=== PATIENT | male | born 1980 | race Caucasian/White ===

== ENCOUNTER → 2016-10-18 08:26 | Emergency (ER) | payer SELFPAY ==
--- NOTE | 2016-10-18 10:19 | RAD ---
INDICATION: Right ankle injury. TECHNIQUE: 3 views of the right ankle were obtained. FINDINGS: There is mild diffuse soft tissue swelling. There is a prominent osteochondral lesion present along the medial superior articular surface of the talus measuring 1.1 x 0.6 cm in size. No other fractures are seen. There is mild to moderate osteoarthritic change in the tibiotalar joint. IMPRESSION: 1. OSTEOCHONDRAL LESION ALONG THE SUPERIOR MEDIAL ARTICULAR SURFACE OF THE TALUS LIKELY CHRONIC RECOMMEND AN MRI OF THE ANKLE FOR FURTHER EVALUATION. 2. MILD TO MODERATE OSTEOARTHRITIC CHANGE.
--- NOTE | 2016-10-18 10:22 | RAD ---
INDICATION: Right foot injury. TECHNIQUE: 3 views of the right foot were obtained. FINDINGS: The bones are normal alignment. Again note is made of an osteochondral lesion along the superior medial articular surface of the talus. No acute fracture is seen. Joint spaces appear maintained. IMPRESSION: OSTEOCHONDRAL LESION TALUS, NO ADDITIONAL FRACTURE RECOMMEND AN MRI OF THE ANKLE.
--- NOTE | 2016-10-18 10:45 | ED ---
Lower Extremity - HPI Summary HPI Summary: 36M presents with right ankle pain since Sunday. He says that he does not known how he injured his ankle. He states that he has been able to ambulate but is very painful. He states the area has swollen up and he has been taking ibuprofen for his pain. He states that he has not had any injury to this ankle before. He works as a building construction estimator. He denies any numbness or tingling. - History of Current Complaint Chief Complaint: EDGeneral Stated Complaint: RT ANKLE PAIN Time Seen by Provider: 10/18/16 10:15 Pain Intensity: 7 - Allergies/Home Medications Allergies/Adverse Reactions: Allergies Allergy/AdvReac Type Severity Reaction Status Date / Time No Known Allergies Allergy Verified 12/01/15 08:54 PMH/Surg Hx/FS Hx/Imm Hx Endocrine/Hematology History: Denies: Hx Diabetes, Hx Thyroid Disease Cardiovascular History: Denies: Hx Hypertension Respiratory History: Denies: Hx Asthma, Hx Chronic Obstructive Pulmonary Disease (COPD) GI History: Denies: Hx Ulcer - Surgical History Surgery Procedure, Year, and Place: fx lt wrist Infectious Disease History: No Infectious Disease History: Denies: Hx Hepatitis, Hx Human Immunodeficiency Virus (HIV), Traveled Outside the [place] in Last 30 Days - Family History Known Family History: Positive: Unknown - Social History Alcohol Use: Rare Hx Substance Use: No Substance Use Type: Reports: None Hx Tobacco Use: Yes Smoking Status (MU): Heavy Every Day Tobacco Smoker Type: Cigarettes Amount Used/How Often: 1ppd Length of Time of Smoking/Using Tobacco: 18yrs Have You Smoked in the Last Year: Yes Review of Systems Negative: Fever Negative: Chest Pain Negative: Shortness Of Breath Positive: Myalgia - right ankle pain All Other Systems Reviewed And Are Negative: Yes Physical Exam Triage Information Reviewed: Yes Vital Signs On Initial Exam: Initial Vitals Temp Pulse Resp BP Pulse Ox 98.6 F 77 16 141/94 99 10/18/16 08:40 10/18/16 08:40 10/18/16 08:40 10/18/16 08:40 10/18/16 08:40 Vital Signs Reviewed: Yes Appearance: Positive: Well-Appearing Skin: Positive: Warm, Dry Head/Face: Positive: Normal Head/Face Inspection Eyes: Positive: Normal, Conjunctiva Clear ENT: Positive: Normal ENT inspection, Pharynx normal, TMs normal Respiratory/Lung Sounds: Positive: Clear to Auscultation, Breath Sounds Present Cardiovascular: Positive: Normal, RRR Musculoskeletal: Positive: Limited @ - ankle due to pain, Other - good pulses, capillary refill < 2 secs, tenderness over medial malleolus, Diagnostics - Vital Signs Vital Signs Temp Pulse Resp BP Pulse Ox 10/18/16 08:40 98.6 F 77 16 141/94 97 - Laboratory Lab Statement: Any lab studies that have been ordered have been reviewed, and results considered in the medical decision making process. - Radiology ankle Xray Interpretation: Positive (See Comments) - IMPRESSION: 1. OSTEOCHONDRAL LESION ALONG THE SUPERIOR MEDIAL ARTICULAR SURFACE OF THE TALUS LIKELY CHRONIC RECOMMEND AN MRI OF THE ANKLE FOR FURTHER EVALUATION. 2. MILD TO MODERATE OSTEOARTHRITIC CHANGE. Radiology Interpretation Completed By: Radiologist Lower Extremity Course/Dx - Course Course Of Treatment: 36M presents with right ankle pain since sunday. He has been able to ambulate on it. He is tender over medial mallelous.xray shows OSTEOCHONDRAL LESION TALUS, NO ADDITIONAL FRACTURE RECOMMEND AN MRI. told to follow up with MRI through ortho. patient understands and agrees with plan - Diagnoses Differential Diagnosis/HQI/PQRI: Positive: Fracture (Closed), Sprain, Strain Provider Diagnoses: osteochondral lesion of talus, Right ankle pain Discharge - Discharge Plan Condition: Good Disposition: HOME Prescriptions: Methylprednisolone [Medrol Dosepak 4 MG*] 4 mg PO .SEE LAIN INSTRUCTION #1 packet Patient Education Materials: Ankle Sprain (ED) Forms: *Work Release Referrals: Melchor Mehta PA [Primary Care Provider] - Alberta Lara MD [Medical Doctor] - Additional Instructions: Follow up with ortho about lesion as will need outpatient MRI Stay off ankle as possible as possible Ice, elevate, keep in JEREMIAH Ibuprofen every 6 hours for pain Take steroid packet as prescribed Return to ED if develop any numbness or tingling or any new or worsening symptoms
[2016-10-18 11:10] VITALS: BP 132/89
== END | disposition home or self-care (01) ==
LOC: ED 08:26
DX: M89.571 Osteolysis, right ankle and foot (principal); M25.571 Pain in right ankle and joints of right foot; F17.210 Nicotine dependence, cigarettes, uncomplicated
CPT/HCPCS: 99282